=== PATIENT | male | born 1960 | race Caucasian/White ===

== ENCOUNTER 2024-11-15 09:08 | Outpatient (CLI) | payer BC | END 2024-11-15 09:09 | disposition home or self-care (01) | LOC: NM 09:08 | PROVIDERS: ATTEND Internal Medicine Hematology & Oncology | DX: C64.1 Malignant neoplasm of right kidney, except renal pelvis (principal); R93.7 Abnormal findings on diagnostic imaging of other parts of musculoskeletal system | CPT/HCPCS: 78306; A9503 ==

== ENCOUNTER 2025-02-13 08:05 | Outpatient (CLI) | payer BC ==
[2025-02-13 08:36] LABS: Estimated GFR - POC 68.0
[2025-02-13] MEDS ORDERED: Iopamidol 370 76% 100 ML VIAL ONE (11:06)
== END 2025-02-13 08:06 | disposition home or self-care (01) ==
LOC: CT 08:05
PROVIDERS: ATTEND Internal Medicine Hematology & Oncology
DX: C64.1 Malignant neoplasm of right kidney, except renal pelvis (principal); C79.51 Secondary malignant neoplasm of bone; J90 Pleural effusion, not elsewhere classified; M84.412A Pathological fracture, left shoulder, initial encounter for fracture; M84.48XA Pathological fracture, other site, initial encounter for fracture
CPT/HCPCS: 36415; 71260; 74177; 78306; 82565; A9503; Q9967